=== PATIENT | female | born 1940 | race Caucasian/White ===

== ENCOUNTER 2017-10-06 02:38 | Inpatient (IN) | payer OTHER ==
[~2017-10-06] VITALS: Ht 160 cm; Wt 68.9 kg
[~2017-10-06 02:38] MED LIST: CYCL5TAB PO; GLIM2TAB2 PO; LEVO500T47 PO; LEVO500T8 PO; METF850T2 PO; OXYC-302 PO; PRED20TA PO
[2017-10-06] MEDS ORDERED: DEXTROSE 50%, 50ML SYRINGE IVPush ONE (03:00)
[2017-10-06 03:51] LABS: BASOPHILS # (AUTO) 0.01 x10^3/uL (0-0.1); BASOPHILS % (AUTO) 0 % (0-1); EOSINOPHILS # (AUTO) 0.02 x10^3/uL (0-0.4); EOSINOPHILS % (AUTO) 0 % (1-7); LYMPHOCYTES % (AUTO) 4 % (22-44); MD NO; MEAN CORPUSCULAR HEMOGLOBIN 28.6 pg (27.0-34.8); MEAN CORPUSCULAR HGB CONC 32.8 g/dL (32.4-35.8); MEAN CORPUSCULAR VOLUME 87.1 fL (80-100); MEAN PLATELET VOLUME 6.6 fL (7.4-10.4); MONOCYTES # (AUTO) 0.44 x10^3/uL (0.2-0.8); MONOCYTES % (AUTO) 3 % (2-9); NEUTROPHILS # (AUTO) 15.52 x10^3/uL (1.8-6.8); NEUTROPHILS % (AUTO) 94 % (42-75); PLATELET COUNT 327 x10^3/uL (130-400); RED CELL DISTRIBUTION WIDTH 18.1 % (9.6-15.2)
[2017-10-06 03:53] LABS: ALBUMIN 3.2 g/dL (3.4-5.0); ANION GAP 10 mmol/L (5-15); CHLORIDE 104 mmol/L (98-107); CREATININE 0.88 mg/dL (0.55-1.02)
[2017-10-06] MEDS ORDERED: CYCLOBENZAPRINE 10 MG TABLET PO PRN (05:00)
[2017-10-06] MEDS ORDERED: ONDANSETRON 2MG/ML, 2ML IVPush PRN ×2 (05:00→05:30)
[2017-10-06] MEDS ORDERED: ONDANSETRON 2MG/ML, 2ML ONE (05:15)
[2017-10-06] MEDS ORDERED: GLUCAGON 1 MG IM PRN (05:30)
[2017-10-06] MEDS ORDERED: ACETAMINOPHEN 325 MG TABLET PO PRN (05:30)
[2017-10-06] MEDS ORDERED: ONDANSETRON ODT 4 MG PO PRN (05:30)
[2017-10-06] MEDS ORDERED: DEXTROSE 4 GM TAB.CHEW PO PRN (05:30)
[2017-10-06 06:42] LABS: HEMOGLOBIN A1C 7.1 % (4.2-6.3)
[2017-10-06 07:00] VITALS: BP 120/37
[2017-10-06] MEDS: DEXTROSE 50%, 50ML SYRINGE IVPush PRN ×3 (08:03→10:42)
[2017-10-06] MEDS: SODIUM CHLORIDE FLUSH 10ML SYR IVF SCH (09:00)
[2017-10-06] MEDS ORDERED: DEXTROSE 10%, 1,000ML IV SCH (10:30)
[2017-10-06] MEDS: DEXTROSE 10% 1,000 ML IV SCH (10:55)
[2017-10-06] MEDS: LEVOFLOXACIN/PMX 500MG/100ML 100 ML IV SCH (14:27)
[2017-10-06 15:00] VITALS: BP 97/73
[2017-10-06] MEDS: INSULIN ASPART 100 UNITS/ML, PEN SQ-INSULIN SCH ×2 (16:00→21:00)
[2017-10-06 20:00] VITALS: BP 121/67
[2017-10-07] MEDS: SODIUM CHLORIDE FLUSH 10ML SYR IVF SCH ×3 (00:50→20:38)
[2017-10-07 04:10] VITALS: BP 115/72
[2017-10-07 05:47] LABS: BASOPHILS # (AUTO) 0.02 x10^3/uL (0-0.1); BASOPHILS % (AUTO) 0 % (0-1); EOSINOPHILS # (AUTO) 0.04 x10^3/uL (0-0.4); EOSINOPHILS % (AUTO) 0 % (1-7); LYMPHOCYTES # (AUTO) 2.26 x10^3/uL (1-3.4); LYMPHOCYTES % (AUTO) 19 % (22-44); MD NO; MEAN CORPUSCULAR HGB CONC 33.6 g/dL (32.4-35.8); MEAN CORPUSCULAR VOLUME 86.4 fL (80-100); MEAN PLATELET VOLUME 6.5 fL (7.4-10.4); MONOCYTES # (AUTO) 0.84 x10^3/uL (0.2-0.8); MONOCYTES % (AUTO) 7 % (2-9); NEUTROPHILS # (AUTO) 8.72 x10^3/uL (1.8-6.8); NEUTROPHILS % (AUTO) 73 % (42-75); PLATELET COUNT 321 x10^3/uL (130-400); RED BLOOD COUNT 4.09 x10^6/uL (3.82-5.3); RED CELL DISTRIBUTION WIDTH 18.1 % (9.6-15.2)
[2017-10-07 05:52] LABS: ALBUMIN 2.9 g/dL (3.4-5.0); ANION GAP 9 mmol/L (5-15); CALCIUM 8.5 mg/dL (8.5-10.1); CHLORIDE 103 mmol/L (98-107)
[2017-10-07 05:55] LABS: CREATININE 0.89 mg/dL (0.55-1.02)
[2017-10-07 05:56] LABS: ALANINE AMINOTRANSFERASE 19 U/L (12-78); ALKALINE PHOSPHATASE 117 U/L (45-117); BILIRUBIN,TOTAL 0.6 mg/dL (0.2-1.0)
[2017-10-07] MEDS: INSULIN ASPART 100 UNITS/ML, PEN SQ-INSULIN SCH ×4 (07:00→21:00)
[2017-10-07] MEDS: DEXTROSE 10% 1,000 ML IV SCH (07:15)
[2017-10-07 08:58] VITALS: BP 144/75
[2017-10-07] MEDS: LEVOFLOXACIN/PMX 500MG/100ML 100 ML IV SCH (13:53)
[2017-10-07 15:40] VITALS: BP 146/75
[2017-10-07] MEDS ORDERED: POTASSIUM PHOSPHATE 44 MEQ in SODIUM CHLORIDE 0.9% 500 ML IV ONE (18:30)
[2017-10-07] MEDS ORDERED: MAGNESIUM SULFATE PMX 4GM/100M 100 ML IV ONE (18:30)
[2017-10-07 21:02] VITALS: BP 113/71
[2017-10-07 22:45] LABS: MICROSCOPIC NOT IND
[2017-10-07 22:50] LABS: CULTURE INDICATED? NO
[2017-10-08 03:25] VITALS: BP 145/78
[2017-10-08] MEDS: INSULIN ASPART 100 UNITS/ML, PEN SQ-INSULIN SCH ×4 (06:20→21:00)
[2017-10-08 07:29] VITALS: BP 111/73
[2017-10-08] MEDS: SODIUM CHLORIDE FLUSH 10ML SYR IVF SCH ×2 (07:59→21:00)
[2017-10-08 13:51] VITALS: BP 117/65
[2017-10-08] MEDS: LEVOFLOXACIN/PMX 500MG/100ML 100 ML IV SCH (13:53)
[2017-10-08 18:59] VITALS: BP 129/78
[2017-10-09 02:26] VITALS: BP 124/84
[2017-10-09 06:00] LABS: ALBUMIN 2.7 g/dL (3.4-5.0); ANION GAP 6 mmol/L (5-15); CHLORIDE 108 mmol/L (98-107)
[2017-10-09 06:01] LABS: BASOPHILS # (AUTO) 0.02 x10^3/uL (0-0.1); BASOPHILS % (AUTO) 0 % (0-1); EOSINOPHILS % (AUTO) 1 % (1-7); LYMPHOCYTES # (AUTO) 3.08 x10^3/uL (1-3.4); LYMPHOCYTES % (AUTO) 30 % (22-44); MD NO; MEAN CORPUSCULAR HEMOGLOBIN 29.2 pg (27.0-34.8); MEAN CORPUSCULAR HGB CONC 33.5 g/dL (32.4-35.8); MEAN CORPUSCULAR VOLUME 87.1 fL (80-100); MEAN PLATELET VOLUME 6.2 fL (7.4-10.4); MONOCYTES # (AUTO) 0.73 x10^3/uL (0.2-0.8); MONOCYTES % (AUTO) 7 % (2-9); NEUTROPHILS # (AUTO) 6.51 x10^3/uL (1.8-6.8); NEUTROPHILS % (AUTO) 62 % (42-75); PLATELET COUNT 303 x10^3/uL (130-400); RED BLOOD COUNT 3.89 x10^6/uL (3.82-5.3)
[2017-10-09 06:03] LABS: ALANINE AMINOTRANSFERASE 15 U/L (12-78); ALKALINE PHOSPHATASE 108 U/L (45-117); BILIRUBIN,TOTAL 0.4 mg/dL (0.2-1.0); CREATININE 0.73 mg/dL (0.55-1.02); TOTAL PROTEIN 5.4 g/dL (6.4-8.2)
[2017-10-09] MEDS: INSULIN ASPART 100 UNITS/ML, PEN SQ-INSULIN SCH ×4 (06:36→22:24)
[2017-10-09] MEDS: SODIUM CHLORIDE 0.9% 1,000 ML IV SCH ×2 (08:01→21:00)
[2017-10-09] MEDS: SODIUM CHLORIDE FLUSH 10ML SYR IVF SCH ×2 (08:01→22:25)
[2017-10-09 08:13] VITALS: BP 119/63
[2017-10-09] MEDS: LACTOBACILLUS CHEW TABLET PO SCH ×3 (09:46→22:23)
[2017-10-09] MEDS: LEVOFLOXACIN/PMX 500MG/100ML 100 ML IV SCH (14:57)
[2017-10-09 14:58] VITALS: BP 123/68
[2017-10-09 19:23] VITALS: BP 114/70
[2017-10-10 02:01] VITALS: BP 121/77
[2017-10-10 05:32] LABS: ANION GAP 7 mmol/L (5-15); CALCIUM 8.1 mg/dL (8.5-10.1); CHLORIDE 108 mmol/L (98-107)
[2017-10-10 05:33] LABS: CREATININE 0.72 mg/dL (0.55-1.02)
[2017-10-10] MEDS: INSULIN ASPART 100 UNITS/ML, PEN SQ-INSULIN SCH ×4 (07:00→21:00)
[2017-10-10] MEDS: SODIUM CHLORIDE 0.9% 1,000 ML IV SCH ×2 (07:00→21:00)
[2017-10-10 07:02] VITALS: BP 121/77
[2017-10-10] MEDS: LACTOBACILLUS CHEW TABLET PO SCH ×3 (08:32→21:00)
[2017-10-10] MEDS: SODIUM CHLORIDE FLUSH 10ML SYR IVF SCH ×2 (08:33→20:00)
[2017-10-10] MEDS: LEVOFLOXACIN/PMX 500MG/100ML 100 ML IV SCH (14:37)
[2017-10-10 15:12] VITALS: BP 112/78
[2017-10-10 20:00] VITALS: BP 134/78
[2017-10-11 02:04] VITALS: BP 112/71
[2017-10-11] MEDS: INSULIN ASPART 100 UNITS/ML, PEN SQ-INSULIN SCH ×4 (07:00→21:00)
[2017-10-11] MEDS: SODIUM CHLORIDE 0.9% 1,000 ML IV SCH ×2 (07:00→20:00)
[2017-10-11 08:25] VITALS: BP 105/56
[2017-10-11] MEDS: LACTOBACILLUS CHEW TABLET PO SCH ×3 (08:38→21:00)
[2017-10-11] MEDS: SODIUM CHLORIDE FLUSH 10ML SYR IVF SCH ×2 (08:41→22:25)
[2017-10-11] MEDS: LEVOFLOXACIN/PMX 500MG/100ML 100 ML IV SCH (15:22)
[2017-10-11 15:41] VITALS: BP 125/75
[2017-10-11 19:02] VITALS: BP 122/74
[2017-10-12 01:44] VITALS: BP 118/75
[2017-10-12] MEDS: SODIUM CHLORIDE 0.9% 1,000 ML IV SCH ×2 (04:56→16:00)
[2017-10-12] MEDS: INSULIN ASPART 100 UNITS/ML, PEN SQ-INSULIN SCH ×3 (07:00→16:00)
[2017-10-12 07:37] VITALS: BP 109/65
[2017-10-12] MEDS: LACTOBACILLUS CHEW TABLET PO SCH (10:02)
[2017-10-12] MEDS: SODIUM CHLORIDE FLUSH 10ML SYR IVF SCH (10:07)
[2017-10-12] MEDS: LEVOFLOXACIN/PMX 500MG/100ML 100 ML IV SCH (14:19)
[2017-10-12 14:57] VITALS: BP 112/72
[2017-10-12] MEDS ORDERED: LEVO500T47 PO (15:50)
[2017-10-12] MEDS ORDERED: GLIP5TAB10 PO (15:50)
[2017-10-12] MEDS ORDERED: ACID1TAB7 PO (15:50)
== END 2017-10-12 17:48 | disposition home or self-care (01) | DRG 871 ==
LOC: ED 03:09 → EDIP 04:57 → INTOOBSV 04:57 → 4NOR 06:50 → OBSVTOIN 10-08 12:39
PROVIDERS: ADMIT Internal Medicine; ATTEND Internal Medicine
DX: A41.9 Sepsis, unspecified organism (principal); J18.9 Pneumonia, unspecified organism; E43 Unspecified severe protein-calorie malnutrition; G93.40 Encephalopathy, unspecified; E11.649 Type 2 diabetes mellitus with hypoglycemia without coma; E86.0 Dehydration; T38.0X5A Adverse effect of glucocorticoids and synthetic analogues, initial encounter; E83.42 Hypomagnesemia; E83.39 Other disorders of phosphorus metabolism; R79.89 Other specified abnormal findings of blood chemistry; D86.9 Sarcoidosis, unspecified; Z79.84 Long term (current) use of oral hypoglycemic drugs; Z87.81 Personal history of (healed) traumatic fracture; Z90.710 Acquired absence of both cervix and uterus; Z79.899 Other long term (current) drug therapy; Z68.26 Body mass index [BMI] 26.0-26.9, adult
CPT/HCPCS: 36415; 71045; 72170; 80048; 80053; 81003; 82040; 82962; 83036; 83735; 84100; 85025; 87040; G0378; J1815; J1956; Q0162; J3475; J7030; J7040; J7512

== ENCOUNTER 2017-12-18 14:05 | Emergency (ER) | payer OTHER ==
[~2017-12-18] VITALS: Ht 160 cm; Wt 58.5 kg
[~2017-12-18 14:05] MED LIST changes: +ACID1TAB7 PO; +GLIP5TAB10 PO
[2017-12-18] MEDS ORDERED: LORazepam 2 MG/ML, 1ML IVPush ONE (16:00)
[2017-12-18] MEDS ORDERED: SODIUM CHLORIDE 0.9% 1,000ML IVBOLUS ONE (16:00)
[2017-12-18] MEDS ORDERED: SODIUM CHLORIDE FLUSH 10ML SYR IVF ONE (16:00)
[2017-12-18] MEDS ORDERED: ONDANSETRON 2MG/ML, 2ML IVPush ONE (16:00)
[2017-12-18 16:22] LABS: ALANINE AMINOTRANSFERASE 18 U/L (12-78); ALBUMIN 3.6 g/dL (3.4-5.0); ANION GAP 14 mmol/L (5-15); CALCIUM 8.5 mg/dL (8.5-10.1); CHLORIDE 103 mmol/L (98-107); CREATININE 0.98 mg/dL (0.55-1.02)
[2017-12-18 16:25] LABS: ALKALINE PHOSPHATASE 115 U/L (45-117); BILIRUBIN,TOTAL 0.6 mg/dL (0.2-1.0); TOTAL PROTEIN 7.2 g/dL (6.4-8.2)
[2017-12-18] MEDS ORDERED: LORazepam 2 MG/ML, 1ML ONE (16:39)
[2017-12-18 16:40] LABS: MICROSCOPIC INDICATED
[2017-12-18 16:44] LABS: CULTURE INDICATED? NO
[2017-12-18 16:56] LABS: MEAN CORPUSCULAR HEMOGLOBIN 27.8 pg (27.0-34.8); MEAN CORPUSCULAR HGB CONC 32.6 g/dL (32.4-35.8); MEAN CORPUSCULAR VOLUME 85.3 fL (80-100); MEAN PLATELET VOLUME 6.9 fL (7.4-10.4); PLATELET COUNT 313 x10^3/uL (130-400); RED BLOOD COUNT 4.58 x10^6/uL (3.82-5.3); RED CELL DISTRIBUTION WIDTH 15.6 % (9.6-15.2)
[2017-12-18 16:57] LABS: MD YES
[2017-12-18 17:00] LABS: <RBC MORPHOLOGY> NORMAL; EOS% (MANUAL) 1 % (1-7); LYMPHS% (MANUAL) 5 % (22-44); MONOS% (MANUAL) 1 % (2-9); SEGS% (MANUAL) 93 % (42-75)
[2017-12-18 17:01] LABS: <PLATELET ESTIMATE> ADEQUATE; <PLT MORPHOLOGY> NORMAL PLT MORPH
[2017-12-18 17:03] LABS: EOS#(MANUAL) 0.08 x10^3/uL (0.0-0.4)
[2017-12-18 17:04] LABS: LYMPH#(MANUAL) 0.38 x10^3/uL (1-3.4); MONOS#(MANUAL) 0.08 x10^3/uL (0.3-2.7); SEG#(MANUAL) 7.07 x10^3/uL (1.8-6.8)
[2017-12-18 18:24] VITALS: BP 183/84
== END 2017-12-18 18:50 | disposition home or self-care (01) ==
LOC: ED 18:17
DX: E86.0 Dehydration (principal); S32.592A Other specified fracture of left pubis, initial encounter for closed fracture; E11.65 Type 2 diabetes mellitus with hyperglycemia; W19.XXXA Unspecified fall, initial encounter; Y93.89 Activity, other specified; Y99.8 Other external cause status; Y92.89 Other specified places as the place of occurrence of the external cause
CPT/HCPCS: 36415; 71045; 72190; 80053; 81001; 85025; 96361; 96374; 99285; J2060; J7030

== ENCOUNTER 2019-09-02 14:06 | Outpatient (CLI) | payer MEDICARE ==
[~2019-09-02 14:06] MED LIST changes: -GLIM2TAB2 PO; +GLIM2TAB3 PO; +METF850T10 PO; -METF850T2 PO
[2019-09-02] MEDS ORDERED: PAROXETINE PO (14:40)
[2019-09-02] MEDS ORDERED: TRAM50TA2 PO (14:40)
[2019-09-02 15:29] LABS: BASOPHILS # (AUTO) 0.03 x10^3/uL (0-0.1); BASOPHILS % (AUTO) 0 % (0-1); EOSINOPHILS # (AUTO) 0.26 x10^3/uL (0-0.4); EOSINOPHILS % (AUTO) 3 % (1-7); LYMPHOCYTES # (AUTO) 1.64 x10^3/uL (1-3.4); LYMPHOCYTES % (AUTO) 18 % (22-44); MD NO; MEAN CORPUSCULAR HEMOGLOBIN 27.5 pg (27.0-34.8); MEAN CORPUSCULAR HGB CONC 32.2 g/dL (32.4-35.8); MEAN CORPUSCULAR VOLUME 85.4 fL (80-100); MEAN PLATELET VOLUME 6.2 fL (7.4-10.4); MONOCYTES # (AUTO) 0.69 x10^3/uL (0.2-0.8); MONOCYTES % (AUTO) 8 % (2-9); NEUTROPHILS # (AUTO) 6.38 x10^3/uL (1.8-6.8); NEUTROPHILS % (AUTO) 71 % (42-75); PLATELET COUNT 371 x10^3/uL (130-400); RED BLOOD COUNT 4.38 x10^6/uL (3.82-5.3)
[2019-09-02 15:37] LABS: ALBUMIN 3.1 g/dL (3.4-5.0); ANION GAP 9 mmol/L (5-15); CHLORIDE 107 mmol/L (98-107)
[2019-09-02 15:45] LABS: ALANINE AMINOTRANSFERASE 24 U/L (12-78); ALKALINE PHOSPHATASE 112 U/L (45-117); BILIRUBIN,TOTAL 0.3 mg/dL (0.2-1.0); CREATININE 1.05 mg/dL (0.55-1.02); TOTAL PROTEIN 7.4 g/dL (6.4-8.2)
[2019-09-02 16:06] LABS: CULTURE INDICATED? YES; MICROSCOPIC INDICATED
[2019-09-02 16:29] LABS: INTERNATIONAL NORMALIZED RATIO 1.09 (0.93-1.1); PROTHROMBIN TIME 11.4 Seconds (9.6-11.5)
[2019-09-16] MEDS ORDERED: PRED5TAB PO (12:18)
[2019-09-16] MEDS ORDERED: ALEN5TAB5 PO (12:18)
[2019-09-22] MEDS ORDERED: CYCL-259 PO (08:56)
[2019-09-22] MEDS ORDERED: HYDR-3237 PO (08:56)
== END 2019-09-02 23:59 | disposition home or self-care (01) ==
LOC: STAR 14:06
PROVIDERS: ATTEND Neurological Surgery
DX: Z01.818 Encounter for other preprocedural examination (principal); M46.02 Spinal enthesopathy, cervical region; J84.10 Pulmonary fibrosis, unspecified; M48.02 Spinal stenosis, cervical region; M48.54XA Collapsed vertebra, not elsewhere classified, thoracic region, initial encounter for fracture
CPT/HCPCS: 36415; 71046; 80053; 81001; 85025; 85610; 85730; 87077; 87086; 87186; 93005

== ENCOUNTER → 2019-09-09 | Outpatient (CLI) | payer MEDICARE, OTHER ==
[~2019-09-09] MED LIST changes: +PAROXETINE PO; +TRAM50TA2 PO
== END | disposition home or self-care (01) ==
LOC: CFH 10:07
PROVIDERS: ATTEND Nurse Practitioner Family
DX: J84.89 Other specified interstitial pulmonary diseases (principal); J84.10 Pulmonary fibrosis, unspecified
CPT/HCPCS: 71250

== ENCOUNTER → 2019-09-11 | Outpatient (CLI) | payer MEDICARE ==
[~2019-09-11] MED LIST changes: +ALEN5TAB5 PO; +PRED5TAB PO
[2019-09-11 13:59] LABS: MICROSCOPIC NOT IND
[2019-09-11 14:32] LABS: CULTURE INDICATED? NO
== END | disposition home or self-care (01) ==
LOC: LAB 13:18
PROVIDERS: ATTEND Neurological Surgery
DX: N39.0 Urinary tract infection, site not specified (principal)
CPT/HCPCS: 81003